=== PATIENT | female | born 1955 | race Caucasian/White ===

== ENCOUNTER 2019-11-28 08:59 | Inpatient (IN) ==
[~2019-11-28 08:59] MED LIST: Famotidine 20 MG/2 ML VIAL IVP ONE
[2019-11-28] MEDS ORDERED: CeFAZolin Syr 2,000MG/20 ML 2,000 MG/20 ML SYRINGE IVPB ONE (09:22)
[2019-11-28] MEDS ORDERED: Ringers Solution, Lactated 1,000 ML IVC SCH ×2 (09:30→14:26)
[2019-11-28] MEDS ORDERED: Dexamethasone 4 MG/ML VIAL ONE (10:14)
[2019-11-28] MEDS ORDERED: Ondansetron 4 MG/2 ML VIAL ONE (10:14)
[2019-11-28] MEDS ORDERED: *HR* FentaNYL (PF) 100 MCG/2 ML VIAL ONE (10:14)
[2019-11-28] MEDS ORDERED: Lidocaine -MPF 2% 2 ML VIAL ONE (10:14)
[2019-11-28] MEDS ORDERED: *HR* Propofol 200 MG/20 ML VIAL IVP ONE (10:14)
[2019-11-28] MEDS ORDERED: *HR* Midazolam HCl 2 MG/2 ML VIAL ONE (10:14)
[2019-11-28 10:43] LABS: Albumin 4.4 g/dL (3.5-5.7); Albumin/Globulin Ratio 1.8 (1.1-2.2); Bilirubin,Direct 0.1 mg/dL (0.0-0.2); Bilirubin,Indirect 0.2 mg/dL (0.0-1.0); Bilirubin,Total 0.3 mg/dL (0.3-1.0); Globulin 2.5 g/dL (2.4-3.5); Total Protein 6.9 g/dL (6.4-8.9)
[2019-11-28] MEDS ORDERED: ROPIVACAINE/PF/NS 0.25% 1 EACH SYRINGE INTRAART ONE (10:58)
[2019-11-28] MEDS ORDERED: Ropivacaine/PF 0.5% 30 ML VIAL ONE (10:58)
[2019-11-28] MEDS ORDERED: Vancomycin 1,000 MG VIAL ONE (11:31)
[2019-11-28] MEDS ORDERED: Ethanol\\Acetic Acid\\Na Ace\\Ben 1,000 ML IRRIG.SOLN IR ONE (11:32)
[2019-11-28] MEDS ORDERED: Lidocaine HCL 4 ML Topical Solution (Laryng-O-Jet Kit Sterile Pak) TP ONE (12:19)
[2019-11-28] MEDS ORDERED: EPHEDrine 50 MG/ML VIAL ONE (12:48)
[2019-11-28] MEDS ORDERED: *HR* PHENYLEPHRINE 1,000 MCG/10 ML SYRINGE IVP ONE (12:56)
[2019-11-28] MEDS ORDERED: MOM Conc 10 ML UD.LIQ PO PRN (14:26)
[2019-11-28] MEDS ORDERED: *HR* OxyCODONE Immed Rel 5 MG TABLET PO PRN (14:26)
[2019-11-28] MEDS ORDERED: D5% in Water 1,000 ML IVC PRN (14:26)
[2019-11-28] MEDS ORDERED: *HR* Dextrose 50 % in Water (Vial) 50 ML VIAL IVP PRN (14:26)
[2019-11-28] MEDS ORDERED: Ibuprofen 800 MG TABLET PO PRN (14:26)
[2019-11-28] MEDS ORDERED: Naloxone 0.4 MG/ML INJ IVP PRN (14:26)
[2019-11-28] MEDS ORDERED: Sennosides 8.6 MG TABLET PO PRN (14:26)
[2019-11-28] MEDS ORDERED: traZODone 50 MG TABLET PO PRN (14:26)
[2019-11-28] MEDS ORDERED: Ondansetron 4 MG/2 ML VIAL IVP PRN (14:26)
[2019-11-28] MEDS ORDERED: Artificial Tears SOLN 15 ML BOTTLE BOTH EYES PRN (14:26)
[2019-11-28] MEDS ORDERED: *HR* OxyCODONE/APAP 5/325 TABLET PO PRN (14:26)
[2019-11-28] MEDS ORDERED: Dextrose Gel 15 GM/37.5 ML TUBE PO PRN ×2 (14:26)
[2019-11-28 14:38] LABS: Hematocrit 44.2 % (35.3-44.9); Hemoglobin 14.1 g/dL (11.5-15.4)
[2019-11-28] MEDS ORDERED: Insulin LISPRO 300 UNITS/3 ML VIAL SQ SCH ×2 (16:30→21:00)
[2019-11-28 16:34] VITALS: BP 96/66
[2019-11-28] MEDS ORDERED: *HR* Enoxaparin 30 MG/0.3 ML SYRINGE SQ SCH ×2 (18:00)
[2019-11-28] MEDS ORDERED: CeFAZolin 2 GM/120 ML BAG IVPB SCH (20:00)
[2019-11-28] MEDS ORDERED: (Ketotifen Fumarate [Zaditor] 1 DROP) OP SCH (21:00)
[2019-11-29] MEDS ORDERED: atenoloL 50 MG TABLET PO SCH (09:00)
[2019-11-29] MEDS ORDERED: Loratadine 10 MG TABLET PO SCH (09:00)
[2019-11-30] MEDS ORDERED: Ergocalciferol (VIT D2) 50,000 UNIT (1.25MG) CAP PO SCH (12:00)
== END 2019-11-28 18:51 | disposition home or self-care (01) | DRG 483 ==
LOC: SAMDAY 08:59 → 3NENU 14:30
PROVIDERS: ADMIT Orthopaedic Surgery; ATTEND Orthopaedic Surgery